=== PATIENT | female | born 1950 | race African-American/Black ===

== ENCOUNTER 2016-05-19 06:53 | Day surgery (SDC) | payer BC ==
[2016-05-14 12:48] LABS: HEMOGLOBIN 12.3 g/dL (12.0-16.0)
[2016-05-14 13:16] LABS: ALBUMIN 3.6 G/DL (3.5-5.0); ALKALINE PHOSPHATASE 53 U/L (45-117); BUN (BLOOD UREA NITROGEN) 16 MG/DL (6-23); CALCIUM, SERUM 9.8 MG/DL (8.5-10.4); CHLORIDE, SERUM 109 MMOL/L (96-112); CO2 (CARBON DIOXIDE) 28 MMOL/L (24-34); GFR AFRICAN AMERICAN 68 ML/MIN (>=60); GFR NON AFRICAN AMERICAN 59 ML/MIN (>=60); GLOBULIN 3.5 G/DL (2.5-4.1); GLUCOSE, SERUM 63 MG/DL (60-99); SGOT(AST) 15 U/L (5-40); SGPT(ALT) 20 U/L (5-65); SODIUM, SERUM 145 MMOL/L (135-148); TOTAL BILIRUBIN 0.4 MG/DL (0-1.2); TOTAL PROTEIN 7.1 G/DL (6.0-8.5)
--- NOTE | ~2016-05-19 | OP ---
Record Of Operation [facility] [address] [place]. [address] NAME: SADI MCDONOUGH : 50 STATUS : [facility]#: [id number] AGE: 65 ADM/REG DATE : 05/19/16 MR#: [id number] REPORT SERV DATE: 05/20/16 DICTATED BY: ZACHERY MANRIQUEZ DATE: 05/20/16 REPORT STATUS : Draft TRANSCRIBED BY: MODL DATE: 05/20/16 DATE OF PROCEDURE: 05/19/2016 ATTENDING SURGEON: Zachery Manriquez M.D. RESIDENT SURGEON: Paddy Conway M.D. PREOPERATIVE DIAGNOSIS: Parathyroid adenoma. POSTOPERATIVE DIAGNOSIS: Left thymic parathyroid adenoma. NAME OF OPERATION: Left thymic parathyroidectomy. ESTIMATED BLOOD LOSS: 10 mL. SPECIMEN: Thymus and parathyroid adenoma. DRAINS: None. ANESTHESIA: General. BRIEF HISTORY: A 65-year-old female with primary hyperparathyroidism. Sestamibi scan and ultrasound revealed an intrathymic left inferior parathyroid adenoma about approximately 2 cm. After risks and benefits of a parathyroidectomy, possible four gland exploration were described in detail with the patient. She agreed to proceed with surgery. On day of surgery, consent was signed. She was then brought to the operating room and placed in supine position. DESCRIPTION OF PROCEDURE: After induction of general anesthesia, the patient's neck and chest were prepped and draped in standard fashion using Hibiclens and ChloraPrep. Attention was brought to the skin folds on the neck, which shows an inferior skin fold just below the cricoid cartilage. We marked this with a skin marker, then made an incision through the skin fold using a scalpel after the time-out. This incision was approximately 4 cm, we carried this down through the platysma muscle with electrocautery. After we incised the platysma, we created infra-platysmal flaps superiorly and inferiorly. We then divided the fascia between the sternal hyoid muscles in the midline and retracted the left strap muscles laterally with an Miguelito clamp. Next, we began our dissection on the inferior pole of the thyroid. We took down the areolar tissue in this area, it did appear full. We located the thymus and then began to dissect it circumferentially and bringing it up. There was an area that was initially suspected to contain the adenoma on the anterior thymus, which was in fact the location of the adenoma. We continued our dissection of the thymic tissue until it was elevated on a stalk. We then transected it with large clips and Metzenbaum scissors. We checked for hemostasis. We then passed the specimen off onto a blue towel. We incised the thymus and we could clearly see a 2 cm parathyroid adenoma in this thymic tissue. The preoperative parathyroid hormone level Record Of Operation [address] [place]. [address] NAME: SADI MCDONOUGH : 50 STATUS : [facility]#: [id number] AGE: 65 ADM/REG DATE : 05/19/16 MR#: [id number] REPORT SERV DATE: 05/20/16 DICTATED BY: ZACHERY MANRIQUEZ DATE: 05/20/16 REPORT STATUS : Draft TRANSCRIBED BY: NEIL DATE: 05/20/16 was approximately 180. The 10-minute level was 89 and the 15-minutes level was 56. At this point, we irrigated, there was no bleeding. We then closed the strap muscles in the midline with a running 2-0 Vicryl suture. We then closed the platysma with interrupted 4-0 Vicryl sutures and the skin with a running 4-0 Monocryl suture and covered the incision with Telfa and tape. The patient tolerated the procedure well. There were no complications. /NEIL Zachery Manriquez M.D. / [id number] CC: Yessenia Torres M.D.
[~2016-05-19 06:53] MED LIST: BINOSTO70 MG PO; CO Q-10200 MG PO; NORV10 PO; VITAMIN D31000 UNIT PO
[2016-05-19 08:48] LABS: PTH (INTRAOPERATIVE) 187.9 PG/ML (10.0-65.0); PTH TAT 0 Hrs 00 Mins
[2016-05-19 09:22] LABS: PTH (INTRAOPERATIVE) 89.1 PG/ML (10.0-65.0); PTH TAT 0 Hrs 00 Mins
[2016-05-19 09:29] LABS: PTH (INTRAOPERATIVE) 56.6 PG/ML (10.0-65.0); PTH TAT 0 Hrs 00 Mins
== END 2016-05-19 13:37 | disposition home or self-care (01) ==
LOC: SDC 06:53
PROVIDERS: Specialist
PROC: 0GBP0ZZ Excision of Left Inferior Parathyroid Gland, Open Approach (ICD-10-PCS; principal; 2016-05-19 07:45)
DX: D35.1 Benign neoplasm of parathyroid gland (principal); E78.00 Pure hypercholesterolemia, unspecified; I10 Essential (primary) hypertension; M19.90 Unspecified osteoarthritis, unspecified site; E66.9 Obesity, unspecified; Z68.36 Body mass index [BMI] 36.0-36.9, adult; Z86.2 Personal history of diseases of the blood and blood-forming organs and certain disorders involving the immune mechanism
CPT/HCPCS: 80053; 83970; 85014; 85018; 88305; 88313; 93005; A9270-GY; C1769; J2370; J2405; J2710; J3010